=== PATIENT | male | born 1985 | race Caucasian/White ===

== ENCOUNTER → 2018-05-09 | Outpatient (REF) | payer MEDICAID, SELFPAY ==
[2018-05-09 19:00] LABS: INFLUENZA A AMPLIFICATION POSITIVE (NEGATIVE); INFLUENZA B AMPLIFICATION NEGATIVE (NEGATIVE)
== END ==
LOC: M LAB REF 17:46
PROVIDERS: ATTEND Physician Assistant Medical
DX: J11.1 Influenza due to unidentified influenza virus with other respiratory manifestations (principal)

== ENCOUNTER → 2019-03-01 | Outpatient (REF) | payer BC ==
[2019-03-01 12:28] LABS: SEMEN APPEARANCE OPAQUE (OPAQUE); SEMEN VISCOSITY LIQUID (LIQUID); WBC CONCENTRATION <=1 M/ml (<=1 M/ml)
== END ==
LOC: M LAB REF 11:30
PROVIDERS: ATTEND Specialist
DX: N46.9 Male infertility, unspecified (principal)

== ENCOUNTER 2019-11-02 08:15 | Day surgery (SDC) | payer BC ==
[2019-11-02] MEDS ORDERED: ceFAZolin 2 GM/D5W 50 ML IV BAG (J0690 PER 500MG) As Ordered ONE (08:16)
[2019-11-02] MEDS ORDERED: ceFAZolin 2 GM/D5W 50 ML IV BAG (J0690 PER 500MG) ONE (08:16)
[2019-11-02] MEDS ORDERED: SUGAMMADEX SODIUM 500 MG/5 ML VIAL (BRIDION) As Ordered ONE (10:33)
[2019-11-02] MEDS ORDERED: LIDOCAINE 2% 100MG/5ML SDV (FOR ANES.) As Ordered ONE (10:33)
[2019-11-02] MEDS ORDERED: dexameTHASONE 4 MG/ML 1ML VIAL (J1100 PER 1MG) As Ordered ONE (10:33)
[2019-11-02] MEDS ORDERED: ONDANSETRON 4MG/2ML VIAL As Ordered ONE (10:33)
[2019-11-02] MEDS ORDERED: MIDAZOLAM INJ 2MG/2ML VIAL (J2250 PER 1MG) As Ordered ONE (10:33)
[2019-11-02] MEDS ORDERED: ROCURONIUM BROMIDE 50 MG/5 ML VIAL As Ordered ONE (10:33)
[2019-11-02] MEDS ORDERED: METOCLOPRAMIDE INJ 10MG/2ML VIAL (J2765 PER 1) As Ordered ONE (10:33)
[2019-11-02] MEDS ORDERED: fentaNYL 250 MCG/5 ML INJECTION (J3010) As Ordered ONE (10:33)
[2019-11-02] MEDS ORDERED: propofoL 200 MG/20 ML VIAL As Ordered ONE (10:33)
[2019-11-02] MEDS ORDERED: BUPIVACAINE/EPIN 0.25% 30 ML VIAL As Ordered ONE (10:48)
[2019-11-02] MEDS ORDERED: oxyCODONE 5MG TAB As Ordered ONE (13:18)
[2019-11-02] MEDS ORDERED: oxyCODONE 5MG TAB ONE (13:18)
--- NOTE | 2020-01-03 08:39 | RO ---
DATE OF OPERATION: 11/02/2019 PREOPERATIVE DIAGNOSIS: Right distal biceps tear. POSTOPERATIVE DIAGNOSIS: Right distal biceps tear. PROCEDURE: Right distal biceps tendon repair. PROCEDURE PERFORMED: Same. OPERATIVE PREAMBLE: This man was lifting a heavy table, heard a pop. He had obvious clinical signs of distal biceps rupture. Discussed pros, cons, risks, benefits, nonsurgical management versus surgical repair. He wished to go head with surgery. I reiterated the risks in preoperative holding, marked the right upper extremity, and proceeded to surgery. OPERATIVE REPORT: The patient was brought to the operating theater. He was placed supine on the operating room table. Two grams of intravenous (IV) Ancef was administered. General anesthesia was induced. All bony prominences were appropriately padded. Sequential compression devices (SCDs) were used on the down legs as well as Bear Hugger. The right upper extremity had an 18-inch tourniquet applied, appropriately padded. Upper extremity was prepped and draped in the usual sterile fashion, allowing over three minutes of prep solution drying time with chlorhexidine-based prep solution. Preoperative time-out was performed, confirming the site, the patient, and surgery. We began by elevating the arm, insufflating the tourniquet to 250 mm of mercury. I instilled 5 mL of 0.25% lidocaine with 1:100,000 epinephrine in and around the proposed incision site, which was on the volar proximal aspect of the forearm centered in the mid aspect of the forearm two finger breadths distal to the elbow flexion crease. Carried the dissection down through skin and subcutaneous tissue, achieving meticulous hemostasis. Identified the distal biceps in the proximal aspect of the incision. I delivered this through the incision. I bulletized the end. I used the Arthrex distal biceps kit. I used the included FiberWire suture and Elliott needle to whip stitch the tendon along its length, locking the distal end of the sutures. I cut the sutures in the mid aspect and then passed them in a sindhu-cross standard fashion through the button and placed a snap on the end of this. I then turned my attention to identifying the radial tuberosity. I identified this. I cleared off any soft tissue. I fully supinated the arm. I passed the partially threaded guidepin aiming away from the posterior interosseous nerve (PIN). I then sized the tendon to be size 8 mm distally. I used an 8 mm reamer to ream the proximal cortex and irrigated the bone dust and suctioned this away. I then passed the tendon underneath superficial veins and used the button delivery device to deliver it bicortically. Button was flipped and tensioned down into the socket appropriately with the arm in slight flexion. This achieved good docking and solid button flip. I then used the included 7 mm diameter interference screw. I passed this down one suture limb and tensioned it, secured it into place for appropriate interference fit. I then used a Rea needle to pass the other suture limb through the tendon and then tied both suture limbs together for triple fixation. Suture limbs were cut short. Tourniquet was taken down, wound thoroughly irrigated. Retractors removed. Subcutaneous tissues closed with 2-0 Vicryl sutures, and skin was cleaned, wet and dry dressing followed by application of Dermabond and then gauze, ABD dressing, and then overwrapped with sterile 6-inch Bob bandage. Patient's upper extremity was placed into a hinged double brace locked at 90 degrees of flexion and the upper extremity placed into a sling. Patient was woken up from general anesthetic, transferred off the operating table, and taken to postanesthesia care unit in stable condition. All sponge count, needle count, instrument counts were correct. No complications. Estimated blood loss 20 mL. Plan is for patient will be discharged home per day surgery criteria. Followup in the office in 2 weeks' time. I have reminded them to avoid elbow extension and keep the wound clean and dry. ARLEEN
== END 2019-11-02 14:45 | disposition home or self-care (01) ==
LOC: M SDC 08:15
PROVIDERS: ATTEND Orthopaedic Surgery Sports Medicine
DX: S46.211A Strain of muscle, fascia and tendon of other parts of biceps, right arm, initial encounter (principal); X50.0XXA Overexertion from strenuous movement or load, initial encounter; Y92.89 Other specified places as the place of occurrence of the external cause; Y99.9 Unspecified external cause status; Y93.9 Activity, unspecified
CPT/HCPCS: 24342; C1713; J0690; J1100; J2250; J2405; J2765; J3010